=== PATIENT | male | born 1970 | race African-American/Black ===

== ENCOUNTER → 2016-11-08 | Outpatient (CLI) | payer OTHER ==
[~2016-11-08] MED LIST: ASPIRIN325 M1 PO; KEPPRA500 M2 PO; KETOPROFEN PO; PROZAC PO
[2016-11-08 11:10] LABS: URINE APPEARANCE CLEAR; URINE BILIRUBIN NEG (NEG); URINE BLOOD NEG (NEG); URINE COLOR YELLOW; URINE GLUCOSE NEG (NEG); URINE KETONE NEG (NEG); URINE LEUKOCYTE ESTERASE 1+ (NEG); URINE NITRATE NEG (NEG); URINE PROTEIN NEG (NEG); URINE SPECIFIC GRAVITY 1.025 (1.003-1.035); URINE UROBILINOGEN 0.2 MG/DL (NEG)
[2016-11-08 11:13] LABS: HEMATOCRIT 40.7 % (38.0-50.0); HEMOGLOBIN 13.5 gm/dL (13.0-16.0); MEAN CELL VOLUME 86.4 FL (83-96); MEAN CORPUSCULAR HEMOGLOBIN 28.5 PG (28-34); MEAN PLATELET VOLUME 7.4 FL (6.5-11.5); RED BLOOD COUNT 4.71 X10e (3.90-5.60); RED CELL DISTRIBUTION WIDTH 14.2 % (11.0-15.5); URBCS1 AUWI 0-2 /[HPF] (0-2); URINE BACTERIA AUWI NEG (NEGATIVE); WHITE BLOOD COUNT 17.6 X10e3 (4.0-10.5)
[2016-11-08 11:15] LABS: URINE SOURCE CLEAN CATCH
[2016-11-08 11:24] LABS: URINE MUCUS PRESENT
[2016-11-08 11:26] LABS: URINE SQUAMOUS EPITHELIAL CELL FEW /[HPF]
[2016-11-08 12:06] LABS: BLOOD UREA NITROGEN 17 mg/dL (9-23); BUN/CREATININE RATIO 10.62; CALCIUM SERUM 8.8 mg/dL (8.4-10.2); CARBON DIOXIDE 26 mmol/L (22-31); CHLORIDE 107 mmol/L (100-111); CREATININE SERUM 1.6 mg/dL (0.6-1.4); GLOM FILT RATE Estimated ABOVE60 mL/min (>60); GLUCOSE FASTING 115 mg/dL (70-110); IRON SERUM 22 ug/dL (45-182); PHOSPHOROUS 3.8 mg/dL (2.5-4.6); POTASSIUM 3.9 mmol/L (3.5-5.1); SODIUM 140 mmol/L (135-145); TOTAL IRON BINDING CAPACITY 266 ug/dL (252-460); TRANSFERRIN 190 mg/dL (180-329); TRANSFERRIN SATURATION 8 % (20-50)
[2016-11-08 12:29] LABS: CREATININE,RANDOM URINE 287 mg/dL; TOTAL PROTEIN,RANDOM URINE 12 mg/dl (<10)
[2016-11-12 17:48] LABS: CALCIUM (PTHINTACT) 8.8 mg/dL (8.6-10.3)
== END | disposition home or self-care (01) ==
LOC: CLAB 10:24
PROVIDERS: Internal Medicine Nephrology
DX: I12.9 Hypertensive chronic kidney disease with stage 1 through stage 4 chronic kidney disease, or unspecified chronic kidney disease (principal); N18.3 Chronic kidney disease, stage 3 (moderate); D63.1 Anemia in chronic kidney disease; N25.81 Secondary hyperparathyroidism of renal origin; E55.9 Vitamin D deficiency, unspecified
CPT/HCPCS: 36415; 80048; 81003; 82306; 82310; 82570; 82728; 83540; 83550; 83970; 84100; 84156; 85027

== ENCOUNTER → 2017-04-06 | Outpatient (CLI) | payer OTHER ==
[2017-04-06 12:48] LABS: HEMATOCRIT 42.3 % (38.0-50.0); HEMOGLOBIN 14.5 gm/dL (13.0-16.0); MEAN CELL VOLUME 86.3 FL (83-96); MEAN CORPUSCULAR HEMOGLOBIN 29.5 PG (28-34); MEAN CORPUSCULAR HGB CONC 34.2 g/dL (30-36); MEAN PLATELET VOLUME 7.6 FL (6.5-11.5); RED BLOOD COUNT 4.9 X10e (3.90-5.60); RED CELL DISTRIBUTION WIDTH 14.5 % (11.0-15.5); WHITE BLOOD COUNT 9.6 X10e3 (4.0-10.5)
[2017-04-06 13:17] LABS: BUN/CREATININE RATIO 9.33; CALCIUM SERUM 8.7 mg/dL (8.4-10.2); CREATININE SERUM 1.5 mg/dL (0.6-1.4); GLOM FILT RATE Estimated 64.7 mL/min (>60); POTASSIUM 3.6 mmol/L (3.5-5.1)
== END | disposition home or self-care (01) ==
LOC: CLAB 12:11
PROVIDERS: Internal Medicine Nephrology
DX: I12.9 Hypertensive chronic kidney disease with stage 1 through stage 4 chronic kidney disease, or unspecified chronic kidney disease (principal); N18.3 Chronic kidney disease, stage 3 (moderate); E55.9 Vitamin D deficiency, unspecified
CPT/HCPCS: 36415; 80048; 82306; 85027